=== PATIENT | male | born 1955 | race Caucasian/White ===

== ENCOUNTER → 2016-06-07 | Outpatient (CLI) | payer OTHER | LOC: CIMAGING 09:49 | PROVIDERS: ATTEND Family Medicine | DX: M19.042 Primary osteoarthritis, left hand (principal) | CPT/HCPCS: 73030-PO; 73140-PO ==

== ENCOUNTER → 2017-08-23 | Outpatient (CLI) | payer OTHER ==
[~2017-08-23] MED LIST: IOPAMIDOL (ISOVUE-300) 100 ML BTL ONE
== END ==
LOC: CIMAGING 13:15
PROVIDERS: ATTEND Family Medicine
DX: R10.32 Left lower quadrant pain (principal); R93.2 Abnormal findings on diagnostic imaging of liver and biliary tract; R93.7 Abnormal findings on diagnostic imaging of other parts of musculoskeletal system; Z85.038 Personal history of other malignant neoplasm of large intestine
CPT/HCPCS: 74177-PO; Q9967

== ENCOUNTER → 2017-09-15 | Outpatient (CLI) | payer OTHER | LOC: FIMAGING 18:34 | DX: M48.02 Spinal stenosis, cervical region (principal); M50.11 Cervical disc disorder with radiculopathy, high cervical region ==

== ENCOUNTER → 2017-09-19 | Outpatient (CLI) | payer OTHER ==
[~2017-09-19] MED LIST changes: +GADOBUTROL 10 ML VIAL IVP ONE; -IOPAMIDOL (ISOVUE-300) 100 ML BTL ONE
== END ==
LOC: FIMAGING 12:55
PROVIDERS: ATTEND Family Medicine
DX: D18.03 Hemangioma of intra-abdominal structures (principal); R16.0 Hepatomegaly, not elsewhere classified; N28.1 Cyst of kidney, acquired; M89.9 Disorder of bone, unspecified; Z85.038 Personal history of other malignant neoplasm of large intestine
CPT/HCPCS: A9585